=== PATIENT | male | born 2000 ===

== ENCOUNTER 2024-03-12 13:16 | Emergency (ER) | payer OTHER ==
[~2024-03-12] VITALS: Ht 182.9 cm; Wt 90.9 kg
[2024-03-12] MEDS: FLUORESCEIN SODIUM 1 MG STRIP OU ONE (14:29)
[2024-03-12] MEDS: PROPARACAINE HCL 0.5% 15 ML OPHTHALMIC SOLUTION OU ONE (14:29)
[2024-03-12 15:14] VITALS: BP 124/82; PULSE 68; RESP 18; TEMP 97.9
[2024-03-12] MEDS ORDERED: ERYT3.5O8 OD (15:16)
== END 2024-03-12 15:24 | disposition home or self-care (01) ==
LOC: EMS 13:16
DX: T15.01XA Foreign body in cornea, right eye, initial encounter (principal); X58.XXXA Exposure to other specified factors, initial encounter; Y93.89 Activity, other specified; Y92.89 Other specified places as the place of occurrence of the external cause; Y99.8 Other external cause status
CPT/HCPCS: 65220; 99284; J9035; Z7502; Z7610